=== PATIENT | male | born 1995 ===

== ENCOUNTER 2018-10-11 02:28 | Observation (INO) | payer OTHER ==
[2018-10-11] MEDS ORDERED: Sodium Chloride 0.9% 1,000 ML IV STA ×2 (03:07→06:28)
--- NOTE | 2018-10-11 03:11 | ED PDOC ---
HPI: Abdomen Time Seen by Provider: 10/11/18 02:46 Chief Complaint (Nursing): Abdominal Pain Chief Complaint (Provider): Abdominal Pain History Per: Patient History/Exam Limitations: no limitations Onset/Duration Of Symptoms: Days (1) Current Symptoms Are (Timing): Still Present Associated Symptoms: Nausea. denies: Fever, Vomiting, Diarrhea Additional Complaint(s): 22 year old male presents to the ED complaining of abdominal pain since 05:00 yesterday. Patient reports he initially had lower abdominal pain and then had diffuse intermittent abdominal pain. He states he ate hot dogs prior to the pain. Patient reports having nausea and headache. Last bowel movement was Sunday. Denies bodyaches, vomiting, diarrhea, or fever. PMD: none Past Medical History Reviewed: Historical Data, Nursing Documentation, Vital Signs Vital Signs: Last Vital Signs Temp 97.7 F 10/11/18 02:50 Pulse 83 10/11/18 02:50 Resp 17 10/11/18 02:50 BP 127/68 10/11/18 02:50 Pulse Ox 100 10/11/18 02:50 - Medical History PMH: No Chronic Diseases - Surgical History Surgical History: No Surg Hx - Family History Family History: States: Unknown Family Hx - Allergies Allergies/Adverse Reactions: Allergies Allergy/AdvReac Type Severity Reaction Status Date / Time No Known Allergies Allergy Verified 10/11/18 02:52 Review of Systems ROS Statement: Except As Marked, All Systems Reviewed And Found Negative Constitutional: Negative for: Fever, Other (bodyaches) Gastrointestinal: Positive for: Nausea, Abdominal Pain. Negative for: Vomiting, Diarrhea Neurological: Positive for: Headache Physical Exam - Reviewed Nursing Documentation Reviewed: Yes Vital Signs Reviewed: Yes - Physical Exam Appears: Positive for: No Acute Distress, Uncomfortable Head Exam: Positive for: ATRAUMATIC, NORMOCEPHALIC Skin: Positive for: Normal Color, Warm, Dry Eye Exam: Positive for: Normal appearance ENT: Positive for: Normal ENT Inspection Neck: Positive for: Normal, Painless ROM Cardiovascular/Chest: Positive for: Regular Rate, Rhythm Respiratory: Positive for: Normal Breath Sounds. Negative for: Wheezing, Respiratory Distress Gastrointestinal/Abdominal: Positive for: Tenderness (diffuse abdominal tenderness, more in the lower abdomen) Extremity: Positive for: Normal ROM Neurological/Psych: Positive for: Awake, Alert, Oriented - Laboratory Results Result Diagrams: 10/11/18 03:22 03/22/19 03:22 - ECG O2 Sat by Pulse Oximetry: 100 (RA) Pulse Ox Interpretation: Normal Medical Decision Making Medical Decision Making: Initial Impression: Abdominal pain Differential includes but not limited to acute appendicitis, small bowel obst ruction, cholecystitis, pancreatitis, and colitis. Initial Plan: --CT abd/pelvis --CMP --Lipase stat --ED urine dipstick --CBC --Morphine 2mg IV --Sodium chloride 1000mL IV --Zofran 4mg IV 04:54 CT abd/pelvis Partial small bowel obstruction. Transition zone in the pelvis. No associated bowel perforation or pneumatosis intestinalis. Uncomplicated colonic diverticulosis. The liver is of uniform attenuation without mass or defect. There is no intra or extrahepatic biliary ductal dilatation. The spleen is normal. The gallbladder is within normal limits. The pancreas is of normal contour and attenuation characteristics. There is no evidence of adrenal mass. Both kidneys demonstrate prompt and equal nephrograms. The kidneys are normal in size, shape and configuration. There is no evidence of renal or ureteral mass. No renal or ureteral calculi are identified. There is no hydroureter or hydronephrosis. No evidence for appendicitis. There is no evidence of abdominal ascites or lymphadenopathy. There is no evidence of intrinsic or extrinsic bladder mass. There is no pelvic ascites or lymphadenopathy. Images of the lung bases show no evidence of pleural or parenchymal mass. There are no pleural effusions. The bony structures are free of lytic or blastic lesi ons. IMPRESSION: Partial small bowel obstruction. Transition zone in the pelvis. No associated bowel perforation or pneumatosis intestinalis. Uncomplicated colonic diverticulosis. 05:12 Spoke with surgical assistant who will come and evaluate patient. Scribe Attestation: Documented by Darron Earl acting as a scribe for Dagoberto Jacques MD. Provider Scribe Attestation: All medical record entries made by the Scribe were at my direction and personally dictated by me. I have reviewed the chart and agree that the record accurately reflects my personal performance of the history, physical exam, medical decision making, and the department course for this patient. I have also personally directed, reviewed, and agree with the discharge instructions and disposition. Disposition - Clinical Impression Clinical Impression: Partial small bowel obstruction - Patient ED Disposition Is Patient to be Admitted: Yes Discussed With : Tony Lloyd Doctor Will See Patient In The: ED Counseled Patient/Family Regarding: Studies Performed, Diagnosis - Disposition Disposition Time: 06:00 Condition: FAIR - Pt Status Changed To: Hospital Disposition Of: Observation - POA Present On Arrival: None
[2018-10-11 03:36] LABS: BASO % 0.2 % (0.0-2.0); EOS # 0.1 K/uL (0.0-0.7); EOS % 1.2 % (0.0-4.0); HEMOGLOBIN 14.4 g/dL (12.0-18.0); LYMPH # 1.4 K/uL (1.0-4.3); LYMPH % 13.4 % (20.0-40.0); MEAN CORPUSCULAR HEMOGLOBIN 29.5 pg (27.0-31.0); MEAN CORPUSCULAR HGB CONC 34.7 g/dL (33.0-37.0); MEAN PLATELET VOLUME 7.1 fl (7.2-11.7); MONO # 0.9 K/uL (0.0-0.8); MONO % 8.4 % (0.0-10.0); NEUT # 7.9 K/uL (1.8-7.0); NEUT % 76.8 % (50.0-75.0); RBC 4.9 Mil/uL (4.40-5.90); RED CELL DISTRIBUTION WIDTH 13.2 % (11.5-14.5); WHITE BLOOD COUNT 10.3 K/uL (4.8-10.8)
[2018-10-11 03:47] LABS: ALB/GLOB RATIO 1.1 (1.0-2.1); ALBUMIN 3.9 g/dL (3.5-5.0); ALT/SGPT 32 U/L (21-72); AST/SGOT 27 U/L (17-59); BLOOD UREA NITROGEN 17 mg/dl (9-20); CALCIUM 8.8 mg/dL (8.4-10.2); GFR NON-AFRICAN AMERICAN > 60; LIPASE 42 U/L (23-300)
[2018-10-11] MEDS ORDERED: Iohexol 300 100 ML IJ ONE (04:17)
[2018-10-11] MEDS ORDERED: Sodium Chloride 0.9% 50 ML IV ONE (04:18)
[2018-10-11] MEDS ORDERED: Morphine 4 MG/ML VIAL IVP PRN (06:18)
--- NOTE | 2018-10-11 06:24 | CP.PCM.HP ---
History of Present Illness - History of Present Illness History of Present Illness: 22M with no significant past medical history presents to [facility] ED with complaints of abdominal pain. Patient states pain started yesterday morning after having hot dogs for dinner the day prior. He reports he has not had a bowel movement since Sunday and denies passing flatus. States he has never had these kind of symptoms before. Reports pain as a 10/10 at its worse and it is currently a 6/10 after morphine administration. He has been nauseous but denies vomiting. Patient also sates he tried 'colon cleanse' supplements which did not alleviate his symptoms. Denies chest pain, shortness of breath, dysuria. PMH: none PSH: none All: NKDA Soc Hx: smokes 1 pack every 2-3 days x9 years. Denies illicit drug use. Present on Admission - Present on Admission Any Indicators Present on Admission: No Review of Systems - Review of Systems All systems: reviewed and no additional remarkable complaints except Review of Systems: except as stated in HPI Past Patient History - Infectious Disease Hx of Infectious Diseases: None - Past Social History Smoking Status: Never Smoked - PSYCHIATRIC Hx Substance Use: No Meds Allergies/Adverse Reactions: Allergies Allergy/AdvReac Type Severity Reaction Status Date / Time No Known Allergies Allergy Verified 10/11/18 02:52 Physical Exam - Constitutional Appears: No Acute Distress - Head Exam Head Exam: NORMOCEPHALIC - Eye Exam Eye Exam: Normal appearance - ENT Exam ENT Exam: Mucous Membranes Moist - Respiratory Exam Respiratory Exam: NORMAL BREATHING PATTERN - Cardiovascular Exam Cardiovascular Exam: +S1, +S2 - GI/Abdominal Exam GI & Abdominal Exam: Soft, Tenderness Additional comments: +LLQ rebound tenderness - Neurological Exam Neurological exam: Alert, Oriented x3 - Psychiatric Exam Psychiatric exam: Normal Mood - Skin Skin Exam: Dry, Intact, Warm Results - Vital Signs Recent Vital Signs: Last Vital Signs Temp 98.1 F 10/11/18 05:24 Pulse 77 10/11/18 05:24 Resp 16 10/11/18 05:24 BP 129/82 10/11/18 05:24 Pulse Ox 98 10/11/18 05:24 - Labs Result Diagrams: 10/11/18 03:22 10/11/18 03:22 Labs: Laboratory Results - last 24 hr 10/11/18 10/11/18 03:22 03:22 WBC 10.3 RBC 4.90 Hgb 14.4 Hct 41.7 MCV 85.0 MCH 29.5 MCHC 34.7 RDW 13.2 Plt Count 299 MPV 7.1 L Neut % (Auto) 76.8 H Lymph % (Auto) 13.4 L [place] % (Auto) 8.4 Eos % (Auto) 1.2 Baso % (Auto) 0.2 Neut # (Auto) 7.9 H Lymph # (Auto) 1.4 [place] # (Auto) 0.9 H Eos # (Auto) 0.1 Baso # (Auto) 0.0 Sodium 140 Potassium 3.7 Chloride 102 Carbon Dioxide 28 Anion Gap 14 BUN 17 Creatinine 0.8 Est GFR ( Amer) > 60 Est GFR (Non-Af Amer) > 60 Random Glucose 114 H Calcium 8.8 Total Bilirubin 0.3 AST 27 ALT 32 Alkaline Phosphatase 52 Total Protein 7.2 Albumin 3.9 Globulin 3.4 Albumin/Globulin Ratio 1.1 Lipase 42 Assessment & Plan - Assessment and Plan (Free Text) Assessment: 22M with abdominal pain with pSBO with transition point in pelvis Plan: -Conservative management -NPO -IVF -Analgesics prn -Anti-emetics prn -Monitor bowel function -Serial abdominal exams -Encourage ambulation D/w Dr. Mauricio Weinstein PGY3
[2018-10-11] MEDS: Lactated Ringer's 1,000 ML IV SCH ×3 (06:50→21:39)
--- NOTE | 2018-10-11 09:28 | CT ---
Date of service: 10/11/2018 PROCEDURE: CT Abdomen and Pelvis with contrast HISTORY: Unspecified abdominal pain COMPARISON: None. TECHNIQUE: Intravenous contrast dose: 95 cc Omnipaque 300. Radiation dose: Total exam DLP = 615.17 mGy-cm. This CT exam was performed using one or more of the following dose reduction techniques: Automated exposure control, adjustment of the mA and/or kV according to patient size, and/or use of iterative reconstruction technique. FINDINGS: LOWER THORAX: Unremarkable. LIVER: Unremarkable. No gross lesion or ductal dilatation. GALLBLADDER AND BILE DUCTS: Unremarkable. PANCREAS: Unremarkable. No gross lesion or ductal dilatation. SPLEEN: Unremarkable. ADRENALS: Unremarkable. No mass. KIDNEYS AND URETERS: Unremarkable. No hydronephrosis. No solid mass. VASCULATURE: Unremarkable. No aortic aneurysm. No atherosclerotic calcification or mural plaque present. BOWEL: Distal small bowel obstruction. The point of obstruction is not seen common no mechanical lesion noted nor is there evidence of into cyst septation. Diverticulosis without an acute inflammatory component or other associated pathologic process. APPENDIX: A normal appendix is visualized in it's entirety. PERITONEUM: Unremarkable. No free fluid. No free air. LYMPH NODES: Unremarkable. No enlarged lymph nodes. BLADDER: Unremarkable. REPRODUCTIVE: Unremarkable. BONES: No acute fracture. OTHER FINDINGS: None. IMPRESSION: Distal small bowel obstruction. No mechanical lesion or intussusception process noted. Additional benign and/or incidental findings described above. Concordant results (preliminary interpretation) provided by [employer]. Procedure Completed: 04:26. Preliminary Report: Interpreted and electronically signed: 04:54. Final Interpretation: 09:24.
[2018-10-11 13:10] VITALS: BMI 26.4
--- NOTE | 2018-10-11 16:20 | RAD ---
Date of service: 10/11/2018 HISTORY: Abdominal pain COMPARISON: Comparison made with prior CT scan of the abdomen and pelvis 10/11/2018. TECHNIQUE: 1 view obtained. FINDINGS: BOWEL: No evidence of acute mechanical bowel obstruction BONES: Normal. OTHER FINDINGS: Urinary bladder is distended with excreted contrast intravenous material. IMPRESSION: No evidence of acute mechanical bowel obstruction
[2018-10-11 17:01] VITALS: RESP 18
[2018-10-11] MEDS: Enoxaparin 40 mg Syringe SC SCH (17:34)
[2018-10-11] MEDS ORDERED: Influenza Vaccine (5 YR UP)/PF 60 MCG/0.5 ML SYR IM ONE (18:09)
[2018-10-11] MEDS ORDERED: Influenza Vaccine 60 mcg/0.5 mL SYR (4YR UP) IM ONE (18:30)
--- NOTE | 2018-10-12 05:44 | CP.PCM.DIS ---
Provider - Provider Date of Admission: 10/11/18 06:28 Attending physician: Kale Martínez MD Time Spent in preparation of Discharge (in minutes): 35 Diagnosis - Discharge Diagnosis (1) Partial small bowel obstruction Status: Resolved Hospital Course - Lab Results Lab Results: Most Recent Lab Values WBC 10.3 K/uL (4.8-10.8) 10/11/18 03:22 RBC 4.90 Mil/uL (4.40-5.90) 10/11/18 03:22 Hgb 14.4 g/dL (12.0-18.0) 10/11/18 03:22 Hct 41.7 % (35.0-51.0) 10/11/18 03:22 MCV 85.0 fl (80.0-94.0) 10/11/18 03:22 MCH 29.5 pg (27.0-31.0) 10/11/18 03:22 MCHC 34.7 g/dL (33.0-37.0) 10/11/18 03: RDW 13.2 % (11.5-14.5) 10/11/18 03:22 Plt Count 299 K/uL (130-400) 10/11/18 03:22 MPV 7.1 fl (7.2-11.7) L 10/11/18 03:22 Neut % (Auto) 76.8 % (50.0-75.0) H 10/11/18 03:22 Lymph % (Auto) 13.4 % (20.0-40.0) L 10/11/18 03:22 [place] % (Auto) 8.4 % (0.0-10.0) 10/11/18 03:22 Eos % (Auto) 1.2 % (0.0-4.0) 10/11/18 03:22 Baso % (Auto) 0.2 % (0.0-2.0) 10/11/18 03:22 Neut # (Auto) 7.9 K/uL (1.8-7.0) H 10/11/18 03:22 Lymph # (Auto) 1.4 K/uL (1.0-4.3) 10/11/18 03:22 [place] # (Auto) 0.9 K/uL (0.0-0.8) H 03/22/19 03:22 Eos # (Auto) 0.1 K/uL (0.0-0.7) 10/11/18 03:22 Baso # (Auto) 0.0 K/uL (0.0-0.2) 10/11/18 03:22 Sodium 140 mmol/l (132-148) 10/11/18 03:22 Potassium 3.7 MMOL/L (3.6-5.0) 10/11/18 03:22 Chloride 102 mmol/L (98-107) 10/11/18 03:22 Carbon Dioxide 28 mmol/L (22-30) 10/11/18 03:22 Anion Gap 14 (10-20) 10/11/18 03:22 BUN 17 mg/dl (9-20) 10/11/18 03:22 Creatinine 0.8 mg/dl (0.8-1.5) 10/11/18 03:22 Est GFR ( Amer) > 60 10/11/18 03:22 Est GFR (Non-Af Amer) > 60 10/11/18 03:22 Random Glucose 114 mg/dL (75-110) H 10/11/18 03:22 Calcium 8.8 mg/dL (8.4-10.2) 10/11/18 03:22 Total Bilirubin 0.3 mg/dl (0.2-1.3) 10/11/18 03:22 AST 27 U/L (17-59) 10/11/18 03:22 ALT 32 U/L (21-72) 10/11/18 03:22 Alkaline Phosphatase 52 U/L (38-126) 10/11/18 03:22 Total Protein 7.2 G/DL (6.3-8.2) 10/11/18 03:22 Albumin 3.9 g/dL (3.5-5.0) 10/11/18 03:22 Globulin 3.4 gm/dL (2.2-3.9) 10/11/18 03:22 Albumin/Globulin Ratio 1.1 (1.0-2.1) 10/11/18 03:22 Lipase 42 U/L (23-300) 10/11/18 03:22 - Hospital Course Hospital Course: Pt was admitted on 10/11 with partial SBO, durring the day the pt had a BM abdominal pain resolved. He requested diet. He was given a regular diet for dinner and tolerated it well. He is clear for D/C at this time with no active issue. Discharge Exam - Head Exam Head Exam: ATRAUMATIC, NORMOCEPHALIC - Eye Exam Eye Exam: EOMI - ENT Exam ENT Exam: Mucous Membranes Moist - Respiratory Exam Respiratory Exam: NORMAL BREATHING PATTERN - Cardiovascular Exam Cardiovascular Exam: +S1, +S2 - GI/Abdominal Exam GI & Abdominal Exam: Soft. absent: Distended, Guarding, Hernia, Rebound, Rigid, Tenderness - Neurological Exam Neurological exam: Alert, Oriented x3 - Psychiatric Exam Psychiatric exam: Normal Affect, Normal Mood - Skin Skin Exam: Dry, Intact Discharge Plan - Discharge Medications Prescriptions: Ciprofloxacin [Cipro] 500 mg PO BID #14 tab Metronidazole [Flagyl] 500 mg PO TID #21 tab - Follow Up Plan Condition: FAIR Disposition: HOME/ ROUTINE Patient education suggested?: No
[2018-10-12] MEDS: Enoxaparin 40 mg Syringe SC SCH (08:29)
[2018-10-12] MEDS ORDERED: DiphenhydrAMINE 50 mg/ml Inj IVP STA (12:22)
[2018-10-12 12:50] VITALS: TEMP 98.3
[2018-10-12 13:38] VITALS: BP 121/84; PULSE 80; O2SAT 96
== END 2018-10-12 14:55 | disposition home or self-care (01) ==
LOC: H.ER 02:28 → H.ERHOLD 06:28 → H.MEDSURG1 09:05
PROVIDERS: ADMIT Specialist; ATTEND Specialist
DX: K56.600 Partial intestinal obstruction, unspecified as to cause (principal); K57.30 Diverticulosis of large intestine without perforation or abscess without bleeding; F17.210 Nicotine dependence, cigarettes, uncomplicated; Z23 Encounter for immunization
CPT/HCPCS: 74018; 74177; 80053; 83690; 85025; 90471; 90674; 96374; 99285; G0378; J1200; J1650; J2270; J2405; J7030; J7120; Q9967